=== PATIENT | female | born 1955 | race African-American/Black ===

== ENCOUNTER 2024-08-06 15:37 | Emergency (ER) | payer OTHER, MEDICAID ==
[~2024-08-06] VITALS: Ht 165.1 cm; Wt 65.0 kg
[2024-08-06 15:53] VITALS: O2SAT 100
[2024-08-06 18:13] LABS: BASOPHILS % 0.4 % (0.0-2.0); CHLORIDE 110 mEq/L (98-107); DIFFERENTIAL COMMENT 0; EOSINOPHILS % 1.7 % (0.0-5.0); HEMATOCRIT. 41.7 % (36.0-48.0); HEMOGLOBIN. 14.4 g/dL (12.0-16.0); LYMPHOCYTES % 30.6 % (20.0-50.0); MEAN CORPUSCULAR HEMOGLOBIN 35.6 pg (28.0-32.0); MEAN CORPUSCULAR HGB CONC 34.6 g/dL (31.0-37.0); MEAN CORPUSCULAR VOLUME 102.6 fL (81.0-99.0); MEAN PLATELET VOLUME 9.7 fl (7.4-10.4); MONOCYTES % 5.8 % (2.0-8.0); NEUTROPHILS % 61.5 % (40.0-76.0); PLATELET 204 x1000/uL (130-400); POTASSIUM 4.4 mEq/L (3.5-5.1); RED BLOOD CELL COUNT 4.06 mill/uL (4.2-5.4); RED CELL DISTRIBUTION WIDTH 13.5 % (11.6-14.6); SODIUM 138 mEq/L (136-145); WHITE BLOOD COUNT 6.6 x1000/uL (4.5-11.0)
[2024-08-06 18:14] LABS: CARBON DIOXIDE 18 mEq/L (21-32)
[2024-08-06 18:15] LABS: CALCIUM 10.8 mg/dL (8.7-10.4)
[2024-08-06 18:19] LABS: GLUCOSE 116 mg/dL (70-105); UREA NITROGEN BLOOD 14 mg/dL (9-23)
[2024-08-06 18:22] LABS: BETA HYDROXYBUTYRATE 1.7 mMol/L (0.0-0.3)
[2024-08-06 19:25] VITALS: BP 154/77; PULSE 88; RESP 16; TEMP 36.78072; O2SAT 100
== END 2024-08-06 19:26 | disposition home or self-care (01) ==
LOC: ER 15:37
DX: E11.65 Type 2 diabetes mellitus with hyperglycemia (principal); E78.00 Pure hypercholesterolemia, unspecified; I10 Essential (primary) hypertension
CPT/HCPCS: 36415; 80048; 82010; 85025; 99283